=== PATIENT | female | born 1965 | race Hispanic/Latino ===

== ENCOUNTER 2023-09-23 09:19 | Outpatient (CLI) | payer OTHER ==
[2023-09-23 11:43] LABS: Anion Gap 16 mmol/L (10-20); BUN (Urea Nitrogen) 6 mg/dL (9.8-20.1); Calc. Creatinine Clearance 0 mL/min (70-130); Calcium 9.7 mg/dL (7.8-10.44); Carbon Dioxide 22 mmol/L (22-29); Chloride 107 mmol/L (98-107); Estimated GFR 95; Glucose 170 mg/dL (70-105); Sodium 141 mmol/L (136-145)
== END 2023-09-23 09:20 | disposition home or self-care (01) ==
LOC: CSHLAB 09:19
PROVIDERS: ATTEND Surgery
DX: Z01.818 Encounter for other preprocedural examination (principal); C50.911 Malignant neoplasm of unspecified site of right female breast
CPT/HCPCS: 80048; 93005; 93010

== ENCOUNTER 2023-09-25 10:17 | Day surgery (SDC) | payer OTHER ==
[2023-09-23 09:40] VITALS: BMI 31.8
[2023-09-25] MEDS ORDERED: Bupivacaine PF 0.5% 30 ML VIAL ONE (12:07)
[2023-09-25] MEDS ORDERED: PROPOFOL 20 ML ONE (12:25)
[2023-09-25] MEDS ORDERED: fentaNYL 50 mcg/mL 1 mL Vial ONE (12:25)
[2023-09-25] MEDS ORDERED: EPINEPHrine 1 MG/ML AMP ONE (12:25)
[2023-09-25] MEDS ORDERED: Dexamethasone 20 MG/5 ML VIAL ONE (12:25)
[2023-09-25] MEDS ORDERED: Lidocaine 1% PF 5 ML VIAL ONE (12:25)
[2023-09-25] MEDS ORDERED: Ondansetron PF 4 MG/2 ML Vial ONE (12:25)
[2023-09-25] MEDS ORDERED: Midazolam HCl 2 mg/2 ml Vial ONE (12:25)
[2023-09-25] MEDS ORDERED: CEFAZOLIN 2 GM VIAL ONE (12:30)
[2023-09-25] MEDS ORDERED: Glycopyrrolate 0.2 MG/ML 5 ML SYRINGE ONE (12:44)
[2023-09-25] MEDS ORDERED: PHENYLEPHRINE-NS 100 MCG/ML 10 ML SYRINGE ONE (13:04)
[2023-09-25] MEDS ORDERED: Acetaminophen 325 MG TAB PO PRN (13:25)
[2023-09-25] MEDS ORDERED: HYDROcodone/Acetaminophen 5/325 mg Tablet PO PRN (13:25)
== END 2023-09-25 14:30 | disposition home or self-care (01) ==
LOC: CSHSDC 10:17
PROVIDERS: ATTEND Surgery
PROC: 0JH60WZ Insertion of Totally Implantable Vascular Access Device into Chest Subcutaneous Tissue and Fascia, Open Approach (ICD-10-PCS; principal; 2023-09-25)
DX: C50.911 Malignant neoplasm of unspecified site of right female breast (principal); Z17.0 Estrogen receptor positive status [ER+]; I10 Essential (primary) hypertension; E11.9 Type 2 diabetes mellitus without complications
CPT/HCPCS: 71045; C1788; J0171; J1100; J1642; J2250; J2405; J2704; J3010; S0020

== ENCOUNTER 2024-08-23 13:37 | Outpatient (CLI) | payer OTHER | END 2024-08-23 13:38 | disposition home or self-care (01) | LOC: CSHULT 13:37 | PROVIDERS: ATTEND Internal Medicine | DX: Z51.11 Encounter for antineoplastic chemotherapy (principal); C50.411 Malignant neoplasm of upper-outer quadrant of right female breast; I42.7 Cardiomyopathy due to drug and external agent; Z79.899 Other long term (current) drug therapy | CPT/HCPCS: 93306 ==